=== PATIENT | male | born 1965 | race Caucasian/White ===

== ENCOUNTER 2017-12-26 05:49 | Outpatient (CLI) | payer BC ==
[~2017-12-26] VITALS: Ht 188 cm; Wt 111.1 kg
[2017-12-26] MEDS ORDERED: METF500T4 PO (15:06)
[2017-12-26] MEDS ORDERED: NEBI20TA2 PO (15:06)
[2017-12-26] MEDS ORDERED: OLME1TAB24 PO (15:06)
[2017-12-26] MEDS ORDERED: DILT240C PO (15:06)
[2017-12-26] MEDS ORDERED: DOXA4TAB2 PO (15:06)
== END 2017-12-26 15:09 ==
LOC: PREOP 05:49
PROVIDERS: ATTEND Surgery
DX: Z01.818 Encounter for other preprocedural examination (principal); Z12.11 Encounter for screening for malignant neoplasm of colon

== ENCOUNTER 2018-01-02 09:06 | Day surgery (SDC) | payer BC, OTHER ==
[~2018-01-02] VITALS: Ht 188 cm; Wt 111.1 kg
[~2018-01-02 09:06] MED LIST: DILT240C PO; DOXA4TAB2 PO; METF500T4 PO; NEBI20TA2 PO; OLME1TAB24 PO
[2018-01-02] MEDS ORDERED: NS IV 500 ML 500 ML IV ONE (09:15)
[2018-01-02] MEDS ORDERED: NS IV 500 ML 500 ML ONE (09:32)
[2018-01-02 09:40] VITALS: BP 174/118
--- NOTE | 2018-01-02 09:58 | History & Physicial ---
History of Present Illness History of Present Illness Reason for visit/HPI to undergo screening colonoscopy. No family history of polyps Date of Admission 01/02/18 Date Seen by Provider: Jan 02, 2018 Time Seen by Provider: 09:55 I consulted on this patient on 01/02/18 09:55 Attending Physician Pepe Contreras MD Admitting Physician Jonh Mcleod MD Consult Allergies and Home Medications Allergies Coded Allergies: No Known Drug Allergies (Unverified , 12/26/17) Home Medications Diltiazem HCl 240 Mg Cap.er.24h, 240 MG PO DAILY, (Reported) Doxazosin Mesylate 4 Mg Tablet, 4 MG PO DAILY, (Reported) Metformin HCl 500 Mg Tablet, 500 MG PO BID, (Reported) Nebivolol HCl 20 Mg Tablet, 20 MG PO DAILY, (Reported) Olmesartan/Hydrochlorothiazide 1 Each Tablet, 1 EACH PO DAILY, (Reported) Past Enafgyx-Yyknvw-Bapnwq Hx Patient Social History Marrital Status: single Employed/Student: employed Smoking Status: Never a Smoker Recent Foreign Travel: No Contact w/other who traveled: No Recent Hopitalizations: No Seasonal Allergies Seasonal Allergies: No Surgeries Yes Eye Surgery, Tonsillectomy Respiratory No Cardiovascular Yes Hypertension Reproductive System Hx Reproductive Disorders: No Genitourinary No Gastrointestinal No Endocrine History of Endocrine Disorders: No HEENT History of HEENT Disorders: No Constitutional: no symptoms reported EENTM: no symptoms reported Respiratory: no symptoms reported Cardiovascular: no symptoms reported Gastrointestinal: no symptoms reported Genitourinary: no symptoms reported Musculoskeletal: no symptoms reported Skin: no symptoms reported Psychiatric/Neurological: No Symptoms Reported Physical Exam Vital Signs Capillary Refill : General Appearance: No Apparent Distress HEENT: Normal ENT Inspection Neck: Normal Inspection Respiratory: Lungs Clear Cardiovascular: Regular Rate, Rhythm Gastrointestinal: Non Tender, Soft Rectal: Deferred Neurologic/Psychiatric: Alert, Oriented x3 Skin: Warm/Dry Assessment/Plan Assessment and Plan gentleman to undergo screening colonoscopy. Details of the procedure, iatrogenic perforation, post polypectomy bleeding etc. discussed thoroughly. seems to be in agreement to proceed Problems: PEPE CONTRERAS MD Jan 02, 2018 9:58 am
--- NOTE | 2018-01-02 09:59 | Conscious Sedation/ASA ---
Conscious Sedation Pre-Proced Time Reviewed: 09:58 ASA Class: 2 Airway Mallampati Classification: ([place] appropriate class) I. II. III, IV Lungs Heart ASA score ASA 1: a normal healthy patient ASA 2: a patient with a mild systemic disease (mid diabetes, controlled hypertension, obesity ASA 3: a patient with a severe systemic disease that limits activity (angina , COPD, prior Myocardial infarction) ASA 4: a patient with an incapacitating disease that is a constant threat to life (CHF, renal failure) ASA 5: a moribund patient not expected to survive 24 hrs. (ruptured aneurysm) ASA 6: a declared brain patient whose organs are being harvested. For emergent operations, add the letter E after the classification Grade 1 Sedation Plan: Discussed options with patient/fam Note The patient is an appropriate candidate to undergo the planned procedure, sedation, and anesthesia. The patient immediately re-assessed prior to indication. PEPE RODRIGUEZ MD Jan 02, 2018 9:58 am
[2018-01-02] MEDS ORDERED: fentaNYL INJECTION 100 MCG/2 ML AMP ONE (10:46)
[2018-01-02] MEDS ORDERED: MIDAZOLAM 2 MG/2 ML (VERSED) VIAL ONE ×4 (10:46)
[2018-01-02] MEDS: MIDAZOLAM 2 MG/2 ML (VERSED) VIAL IVP PRN ×3 (10:54→11:02)
[2018-01-02] MEDS: fentaNYL INJECTION 100 MCG/2 ML AMP IVP PRN ×2 (10:56→10:59)
--- NOTE | 2018-01-02 11:19 | Endo Procedure Record ---
Endo Procedure Report Date of Procedure Last Colonoscopy: No Jan 02, 2018 Surgeon (s) PEPE RODRIGUEZ MD Post Procedure/Op Diagnosis Very few sigmoid diverticula Procedure Performed Colonoscopy to cecum Description of Procedure Anesthesia Type: Conscious Sedation Specimen(s) collected/removed none Description of the Procedure Indication for the procedure: This gentleman came in for screening colonoscopy. He denied any family history of colon cancer. Informed consent was obtained after reviewing the procedure in detail. Description of the procedure: he was placed in left lateral disposition and his vital signs were monitored. Conscious sedation was achieved using Versed and fentanyl. Digital rectal examination was unremarkable. The colonoscope was then introduced into the rectum and advanced all the way up to the cecum. The quality of bowel preparation was excellent. The scope was then withdrawn slowly and the mucosa examined in a systematic fashion. Finding: Very few, scattered sigmoid diverticulae. He tolerated the procedure well and was taken back to the nursing area in a stable condition. Impression: Screening colonoscopy. No polyps. No family history. Recommend repeating in 10 years Copies To: MANI KUO MD, XAVIER M MD Jan 02, 2018 11:19 am
--- NOTE | 2018-01-02 11:20 | Discharge Inst-Simple/Standard ---
Discharge Inst-Standard Discharge Medications New, Converted or Re-Newed RX: Other Patient Instructions/Follow Up Plan of Care/Instructions/FU: Repeat colonoscopy in 10 years Activity as Tolerated: Yes Discharge Diet: No Restrictions PEPE RODRIGUEZ MD Jan 02, 2018 11:20 am
[2018-01-02 11:35] VITALS: BP 114/67
[2018-01-02 12:05] VITALS: BP 152/106
[2018-01-02 12:25] VITALS: BP 152/106
== END 2018-01-02 12:25 | disposition home or self-care (01) ==
LOC: ENDO 09:06
PROVIDERS: ATTEND Surgery
DX: Z12.11 Encounter for screening for malignant neoplasm of colon (principal); K57.30 Diverticulosis of large intestine without perforation or abscess without bleeding; I10 Essential (primary) hypertension; Z79.84 Long term (current) use of oral hypoglycemic drugs; Z79.899 Other long term (current) drug therapy
CPT/HCPCS: 82962